=== PATIENT | female | born 2000 | race Two or more races ===

== ENCOUNTER 2025-05-03 08:24 | Emergency (ER) | payer OTHER ==
[~2025-05-03] VITALS: Ht 175.3 cm; Wt 68.5 kg
[2025-05-03 08:47] VITALS: BP 115/73; O2SAT 98
[2025-05-03] MEDS ORDERED: ONDANSETRON HCL 2 MG/ML VIAL IV STA (09:13)
[2025-05-03] MEDS ORDERED: FAMOtidine 10 MG/ML (4ML VIAL) IV PUSH STA (09:13)
[2025-05-03] MEDS ORDERED: 0.9 % SODIUM CHLORIDE 1,000 ML IV STA (09:14)
[2025-05-03] MEDS ORDERED: ONDANSETRON HCL 2 MG/ML VIAL ONE (09:20)
[2025-05-03] MEDS ORDERED: FAMOTIDINE/PF 20 MG/2 ML VIAL ONE (09:20)
[2025-05-03 09:55] LABS: BASO % 0.6 % (0.1-1.2); EOS # 0.01 (0.04-0.54); EOS % 0.2 % (0.7-7.0); LYMPH # 1.59 (1.18-3.74); LYMPH % 32.4 % (19.3-53.1); MEAN PLATELET VOLUME 13.30 fl (9.4-12.4); MONO # 0.28 (0.24-0.82); MONO % 5.7 % (4.7-12.5); NEUT # 2.98 (1.56-6.13); NEUT % 60.9 % (34.0-71.1); RED CELL DISTRIBUTION WIDTH 12.7 % (11.6-14.4)
[2025-05-03 10:26] LABS: LYMPHOCYTE MAN 43.0 %; MONOCYTE MAN 1.0 %; NEUTROPHILS MAN 56.0 %
[2025-05-03 10:37] LABS: ALT/SGPT 17.0 U/L (12-78); AST/SGOT 9.0 U/L (15-37); BILIRUBIN TOTAL 0.47 mg/dL (0.3-1.2); BUN CREA RATIO 11.0 (7.0-25.0); CREATININE SERUM 0.66 mg/dL (0.55-1.02); GFR 110.03; GLOBULINA 4.1 G/DL (2.4-3.5); GLUCOSE FASTING 110.0 mg/dL (65-100); OSMOLALITY SERUM 274.0 MOSM/KG (275-295)
== END 2025-05-03 11:06 | disposition home or self-care (01) ==
LOC: ER 08:24
PROVIDERS: General Practice
DX: O26.891 Other specified pregnancy related conditions, first trimester (principal); Z3A.01 Less than 8 weeks gestation of pregnancy; R11.10 Vomiting, unspecified

== ENCOUNTER 2025-05-06 10:22 | Emergency (ER) | payer OTHER ==
[~2025-05-06] VITALS: Ht 175.3 cm; Wt 68.0 kg
[2025-05-06] MEDS ORDERED: ONDANSETRON HCL 2 MG/ML VIAL IV STA (11:31)
[2025-05-06] MEDS ORDERED: PANTOPRAZOLE SODIUM 40 MG/VIAL VIAL IV STA (11:31)
[2025-05-06] MEDS ORDERED: 0.9 % SODIUM CHLORIDE 1,000 ML IV STA (11:32)
[2025-05-06] MEDS ORDERED: ONDANSETRON HCL 2 MG/ML VIAL ONE (11:38)
[2025-05-06 12:21] LABS: BASO % 0.4 % (0.1-1.2); EOS # 0.01 (0.04-0.54); EOS % 0.2 % (0.7-7.0); LYMPH # 2.33 (1.18-3.74); LYMPH % 41.7 % (19.3-53.1); MEAN PLATELET VOLUME 13.50 fl (9.4-12.4); MONO # 0.61 (0.24-0.82); MONO % 10.9 % (4.7-12.5); NEUT # 2.61 (1.56-6.13); NEUT % 46.6 % (34.0-71.1); RED CELL DISTRIBUTION WIDTH 12.3 % (11.6-14.4)
[2025-05-06 12:54] LABS: ALT/SGPT 19.0 U/L (12-78); AST/SGOT 11.0 U/L (15-37); BILIRUBIN TOTAL 0.5 mg/dL (0.3-1.2); BUN CREA RATIO 13.0 (7.0-25.0); CREATININE SERUM 0.72 mg/dL (0.55-1.02); GFR 99.52; GLOBULINA 3.8 G/DL (2.4-3.5); GLUCOSE FASTING 103.0 mg/dL (65-100); OSMOLALITY SERUM 273.0 MOSM/KG (275-295)
[2025-05-06 12:59] LABS: LYMPHOCYTE MAN 29.0 %; MONOCYTE MAN 12.0 %; MYELOCYTE 1.0 %; NEUTROPHILS MAN 53.0 %
[2025-05-06 13:51] LABS: URINE APPEARANCE Clear; URINE BILIRRUBIN Negative (NEGATIVE); URINE BLOOD Small; URINE COLOR Yellow; URINE GLUCOSE Negative (NEGATIVE); URINE LEUKOCYTE Moderate; URINE NITRATE Negative; URINE PROTEIN 30 (NEGATIVE); URINE UROBILINOGEN 1.0 E.U./dl
[2025-05-06 13:56] LABS: URINE EPITHELIAL CELLS 91.2 uL (0.0-38.8); URINE RBC 34.9 uL (0.0-20.8); URINE WBC 158.0 uL (0.0-23.2)
[2025-05-06 14:13] LABS: TYPE CELLS SQUAMOUS; URINE CAST 0.70 uL (0.0-1.40); URINE KETONE 80 (NEGATIVE)
[2025-05-06] MEDS ORDERED: METOCLOPRAMIDE HCL 5 MG/ML VIAL IV STA (15:13)
[2025-05-07] MEDS ORDERED: PEPCID AC10 MG (19:29)
[2025-05-07] MEDS ORDERED: PROTONIX40 MG PO (22:29)
[2025-05-07] MEDS ORDERED: ZOFRAN8 MG PO (22:29)
[2025-05-07] MEDS ORDERED: DICLEGIS DR 101 EACH PO (22:29)
== END 2025-05-06 17:19 | disposition home or self-care (01) ==
LOC: ER 10:22
PROVIDERS: General Practice
DX: O21.0 Mild hyperemesis gravidarum (principal)

== ENCOUNTER 2025-05-07 19:14 | Emergency (ER) | payer OTHER ==
[~2025-05-07] VITALS: Ht 175.3 cm; Wt 68.5 kg
[2025-05-07] MEDS ORDERED: PEPCID AC10 MG (19:29)
[2025-05-07] MEDS ORDERED: ONDANSETRON HCL 2 MG/ML VIAL IV ONE (20:45)
[2025-05-07] MEDS ORDERED: FAMOtidine 10 MG/ML (4ML VIAL) IV ONE (20:45)
[2025-05-07] MEDS ORDERED: 0.9 % SODIUM CHLORIDE 1,000 ML IV ONE (20:45)
[2025-05-07 21:47] LABS: BASO % 0.5 % (0.1-1.2); EOS # 0.01 (0.04-0.54); EOS % 0.2 % (0.7-7.0); LYMPH # 2.15 (1.18-3.74); LYMPH % 37.3 % (19.3-53.1); MEAN PLATELET VOLUME 13.60 fl (9.4-12.4); MONO # 0.62 (0.24-0.82); MONO % 10.8 % (4.7-12.5); NEUT # 2.93 (1.56-6.13); NEUT % 50.9 % (34.0-71.1); RED CELL DISTRIBUTION WIDTH 12.7 % (11.6-14.4)
[2025-05-07 22:23] LABS: HCG QUANTITATIVE 32856 mUI/mL (1-3)
[2025-05-07] MEDS ORDERED: ZOFRAN8 MG PO (22:29)
[2025-05-07] MEDS ORDERED: DICLEGIS DR 101 EACH PO (22:29)
[2025-05-07] MEDS ORDERED: PROTONIX40 MG PO (22:29)
[2025-05-07 22:42] LABS: LYMPHOCYTE MAN 38.0 %; MONOCYTE MAN 10.0 %; NEUTROPHILS MAN 49.0 %
[2025-05-07] MEDS ORDERED: PROMETHAZINE HCL 50 MG/ML AMPUL IM ONE ×2 (22:45→23:00)
[2025-05-07] MEDS ORDERED: MORPHINE SULFATE 4 MG/ML VIAL IV ONE ×2 (22:45→23:15)
== END 2025-05-08 08:04 | disposition home or self-care (01) ==
LOC: ER 19:15
PROVIDERS: General Practice
DX: O21.0 Mild hyperemesis gravidarum (principal); Z3A.01 Less than 8 weeks gestation of pregnancy

== ENCOUNTER 2025-05-22 19:57 | Emergency (ER) | payer OTHER ==
[~2025-05-22] VITALS: Ht 175.3 cm; Wt 68.0 kg
[~2025-05-22 19:57] MED LIST: DICLEGIS DR 101 EACH PO; PEPCID AC10 MG; PROTONIX40 MG PO; ZOFRAN8 MG PO
[2025-05-22] MEDS ORDERED: FAMOTIDINE/PF 20 MG in 0.9 % SODIUM CHLORIDE 8 ML IV PUSH ONE (21:15)
[2025-05-22] MEDS ORDERED: ONDANSETRON HCL 4 MG in 0.9 % SODIUM CHLORIDE 50 ML IV ONE (21:15)
[2025-05-22] MEDS ORDERED: 0.9 % SODIUM CHLORIDE 1,000 ML IV SCH (21:15)
[2025-05-22] MEDS ORDERED: ACETAMINOPHEN 500 MG GEL..CAP PO ONE ×2 (21:15→22:18)
[2025-05-22] MEDS ORDERED: FAMOTIDINE/PF 20 MG/2 ML VIAL ONE (22:18)
[2025-05-22] MEDS ORDERED: ONDANSETRON HCL 2 MG/ML VIAL ONE (22:18)
[2025-05-22 23:10] LABS: BASO % 0.5 % (0.1-1.2); EOS # 0.02 (0.04-0.54); EOS % 0.3 % (0.7-7.0); LYMPH # 1.84 (1.18-3.74); LYMPH % 31.1 % (19.3-53.1); MEAN PLATELET VOLUME 13.30 fl (9.4-12.4); MONO # 0.54 (0.24-0.82); MONO % 9.1 % (4.7-12.5); NEUT # 3.49 (1.56-6.13); NEUT % 59.0 % (34.0-71.1); RED CELL DISTRIBUTION WIDTH 11.9 % (11.6-14.4)
[2025-05-22 23:51] LABS: INR 1.07
[2025-05-23 00:11] LABS: ALT/SGPT 46.0 U/L (12-78); AST/SGOT 18.0 U/L (15-37); BILIRUBIN TOTAL 0.24 mg/dL (0.3-1.2); BUN CREA RATIO 11.0 (7.0-25.0); CREATININE SERUM 0.7 mg/dL (0.55-1.02); GFR 102.8; GLOBULINA 4.2 G/DL (2.4-3.5); GLUCOSE FASTING 103.0 mg/dL (65-100); OSMOLALITY SERUM 272.0 MOSM/KG (275-295)
[2025-05-23] MEDS ORDERED: METOCLOPRAMIDE10 MG PO (01:49)
[2025-05-23] MEDS ORDERED: PEPCID AC20 MG PO (01:49)
[2025-05-23] MEDS ORDERED: METOCLOPRAMIDE HCL 5 MG/ML VIAL ONE (01:55)
[2025-05-23] MEDS ORDERED: METOCLOPRAMIDE HCL 5 MG/ML VIAL IM ONE (02:00)
== END 2025-05-23 02:50 | disposition home or self-care (01) ==
LOC: ER 19:58
PROVIDERS: General Practice
DX: O21.0 Mild hyperemesis gravidarum (principal); Z3A.08 8 weeks gestation of pregnancy; Z87.09 Personal history of other diseases of the respiratory system

== ENCOUNTER 2025-05-25 11:49 | Emergency (ER) | payer OTHER ==
[~2025-05-25] VITALS: Ht 175.3 cm; Wt 67.6 kg
[~2025-05-25 11:49] MED LIST changes: +METOCLOPRAMIDE10 MG PO; +PEPCID AC20 MG PO
[2025-05-25] MEDS ORDERED: ACETAMINOPHEN 500 MG GEL..CAP PO ONE ×2 (13:15→13:20)
[2025-05-25] MEDS ORDERED: FAMOTIDINE/PF 20 MG in 0.9 % SODIUM CHLORIDE 8 ML IV PUSH ONE (13:15)
[2025-05-25] MEDS ORDERED: ONDANSETRON HCL 4 MG in 0.9 % SODIUM CHLORIDE 50 ML IV ONE (13:15)
[2025-05-25] MEDS ORDERED: 0.9 % SODIUM CHLORIDE 1,000 ML IV ONE (13:15)
[2025-05-25] MEDS ORDERED: ONDANSETRON HCL 2 MG/ML VIAL ONE (13:20)
[2025-05-25] MEDS ORDERED: FAMOTIDINE/PF 20 MG/2 ML VIAL ONE (13:21)
[2025-05-25 13:51] LABS: BASO % 0.8 % (0.1-1.2); EOS # 0.00 (0.04-0.54); EOS % 0.0 % (0.7-7.0); LYMPH # 1.56 (1.18-3.74); LYMPH % 31.6 % (19.3-53.1); MEAN PLATELET VOLUME 13.00 fl (9.4-12.4); MONO # 0.51 (0.24-0.82); MONO % 10.3 % (4.7-12.5); NEUT # 2.83 (1.56-6.13); NEUT % 57.3 % (34.0-71.1); RED CELL DISTRIBUTION WIDTH 11.9 % (11.6-14.4)
[2025-05-25] MEDS ORDERED: THIAMINE HCL 100 MG/ML 2 ML VIAL IV ONE (14:15)
[2025-05-25 14:17] LABS: LYMPHOCYTE MAN 27.0 %; MONOCYTE MAN 9.0 %; NEUTROPHILS MAN 64.0 %
[2025-05-25] MEDS ORDERED: THIAMINE HCL 100 MG/ML 2 ML VIAL ONE (14:18)
[2025-05-25 14:33] LABS: ALT/SGPT 53.0 U/L (12-78); AST/SGOT 20.0 U/L (15-37); BILIRUBIN TOTAL 0.31 mg/dL (0.3-1.2); BUN CREA RATIO 15.0 (7.0-25.0); CREATININE SERUM 0.53 mg/dL (0.55-1.02); GFR 141.72; GLOBULINA 3.8 G/DL (2.4-3.5); GLUCOSE FASTING 90.0 mg/dL (65-100); OSMOLALITY SERUM 270.0 MOSM/KG (275-295)
[2025-05-25 15:20] LABS: INR 1.13
[2025-05-25] MEDS ORDERED: PROMETHAZINE HCL 25 MG/ML AMPUL IM ONE (15:30)
[2025-05-25] MEDS ORDERED: PROMETHAZINE HCL 25 MG/ML AMPUL ONE (15:49)
[2025-05-25 18:54] LABS: URINE APPEARANCE Clear; URINE BILIRRUBIN Negative (NEGATIVE); URINE BLOOD Negative; URINE COLOR Yellow; URINE GLUCOSE Negative (NEGATIVE); URINE LEUKOCYTE Small; URINE NITRATE Negative; URINE PROTEIN 30 (NEGATIVE); URINE UROBILINOGEN 1.0 E.U./dl
[2025-05-25 18:58] LABS: URINE EPITHELIAL CELLS 36.9 uL (0.0-38.8); URINE RBC 27.6 uL (0.0-20.8); URINE WBC 102.3 uL (0.0-23.2)
[2025-05-25 19:01] LABS: URINE CAST 0.70 uL (0.0-1.40); URINE KETONE >=160 (NEGATIVE)
[2025-05-25] MEDS ORDERED: CEFADROXIL500 MG PO (19:10)
== END 2025-05-25 19:23 | disposition home or self-care (01) ==
LOC: ER 11:49
PROVIDERS: General Practice
DX: O21.0 Mild hyperemesis gravidarum (principal); Z3A.00 Weeks of gestation of pregnancy not specified; N39.0 Urinary tract infection, site not specified